=== PATIENT | female | born 1985 | race African-American/Black ===

== ENCOUNTER 2024-05-26 20:51 | Emergency (ER) | payer OTHER, SELFPAY ==
[2024-05-26 20:55] VITALS: BP 145/95
[2024-05-26 21:35] VITALS: BMI 43.7
--- NOTE | 2024-05-26 22:55 | ED.GENMED ---
History of Present Illness
General
Chief Complaint: Breast Problem
Source: patient
Exam Limitations: none
Time Seen by Provider: 05/26/24 22:46
Nursing documentation reviewed up to this point in time: agreed with
History of Present Illness
History of Present Illness:
This is a 39-year-old woman with history of hypertension complains of right breast pain, redness, warmth that began this afternoon, worsening throughout the day. She has had intermittent chills and myalgias this evening.
She does continue to breast-feed her 2-year-old.
No history of similar episodes in the past. She denies bloody nor purulent nipple discharge.
She has not taken anything for pain.
No history of diabetes nor history of immunocompromise.
Past History
Past History
ED Past Medical History: Arrthythmia (Palpitations) and HTN
ED Past Surgical History: Gynecological (Ovarian cyst removed)
Social History
Tobacco: Non-smoker
Alcohol: None
Drug: None
Personal:
Living: with family
Employment: Employed
Family History
Family History: Hypertension
Phy Exam
Physical Exam
Physical Exam:
GENERAL: 39-year-old woman appears her stated age, awake and alert, pleasant, appears in no acute distress. Low-grade fever noted.
EYE: anicteric
NECK: Supple, nontender, no meningismus, no significant adenopathy.
ENT: oral mucosa is moist. No rhinorrhea.
CARDIAC: Regular rate and rhythm. no murmur.
LUNGS: Clear breath sounds bilaterally, no acute respiratory distress, no wheezes/rales/rhonchi
BREAST: Right breast with mild serpiginous erythema throughout the breast but more pronounced lateral to the inferior aspect of the breast. Right breast is mildly warm to touch. Exquisite tenderness about the breast but no palpable masses. No
nipple discharge. No axillary tenderness nor axillary adenopathy. Left breast is without tenderness nor palpable masses.
ABDOMEN: Soft, nondistended, without focal tenderness
NEUROLOGICAL: Alert and oriented x3, no focal neuro deficits. Gait is yang and steady.
SKIN: Warm and dry, normal color, skin intact.
MUSCULOSKELETAL: No C/C/E. peripheral pulses are full and equal b/l. No palpable tenderness.
PSYCH: Normal and appropriate interaction.
Course
Orders/Labs/Results
Orders:
Orders
05/26/24 22:54
Ibuprofen [Motrin] 800 mg PO NOW STA
Sulfamethox./Trimethoprim Ds [Bactrim Ds 800 mg/160 mg] 1 tablet PO NOW STA
Vital Signs
Temp: 100.5 F
Initial and Last Documented VS:
Initial Vital Signs
Temp Pulse Resp BP Pulse Ox
99.8 F 109 20 145/95 97
05/26/24 20:55 05/26/24 20:55 05/26/24 20:55 05/26/24 20:55 05/26/24 20:55
Last Documented Vital Signs
Temp Pulse Resp BP Pulse Ox
99.8 F 109 20 145/95 97
05/26/24 20:55 05/26/24 20:55 05/26/24 20:55 05/26/24 20:55 05/26/24 20:55
MDM/Problems Addressed
Differential Diagnosis Includes:
39-year-old breast feeding woman presents with 1 day history of right breast pain, redness, warmth along with low-grade fever.
History and exam consistent with acute mastitis. There is no evidence of abscess formation.
No history of similar episodes in the past.
No history of immunocompromise.
Overall well in appearance. No indication for laboratory studies nor imaging at this point.
No prior history of MRSA however must consider community acquired MRSA thus will treat with a 1 week course of Bactrim DS.
Will give ibuprofen for pain and fever.
Recommend supportive measures, local heat and continue breast-feeding.
Prompt follow-up with PCP versus [facility].
Return precautions discussed.
Chronic conditions affecting care: HTN
*Pulse Oximetry
Patient hypoxic: no
*Critical Care Note
Total Time (30-74mins, 75-104mins- exclusive of procedures): Not Applicable
ED Attending Note
-
Portions of this chart may have been created with voice recognition software.� Occasional wrong word or��sound alike� substitutions may have occurred due to the inherent limitations of voice recognition software.
Discharge Plan
Departure
Patient Disposition: Home (Routine Discharge)
Date of Disposition: 05/26/24
Time of Disposition: 23:03
Patient with high blood pressure during this ER visit?: No
Condition: Good
Discharge Problem:
Acute mastitis of right breast
Instructions: Mastitis
Prescriptions:
New
sulfamethoxazole-trimethoprim [Bactrim DS] 800-160 mg tablet
1 tab PO BID 7 Days Qty: 14 1RF
ibuprofen 800 mg tablet
800 mg PO QIDPRN PRN (Reason: pain, fever) Qty: 30 0RF
No Action
enalapril maleate 10 mg Tablet
10 mg PO DAILY
nifedipine 30 mg Tablet Extended Release
30 mg PO R HS
Patient Comments:
pt takes at 6pm
cholecalciferol (vitamin D3) [Vitamin D3] 50 mcg (2,000 unit) Tablet
50 mcg PO DAILY
Referrals:
[facility] [Other]
Interventions
Interventions:
*Risk Screen - Suicide Last Done: 05/26/24 20:55
*General Assessment Last Done: 05/26/24 20:55
*Neglect/Abuse Screening Last Done: 05/26/24 20:55
Discharge Date and Time
Print Language: BENINESE
[2024-05-26] MEDS: MOTRIN 800 MG PO (23:05)
[2024-05-26] MEDS: BACTRIM DS 800 MG/160 MG 1 TABLET PO (23:05)
[2024-05-26 23:27] VITALS: BP 137/78
== END 2024-05-26 23:15 | disposition home or self-care (01) ==
LOC: EMR 20:51
PROVIDERS: EMERGENCY PHYSICIAN Emergency Medicine
DX: N61.0 Mastitis without abscess (principal); I10 Essential (primary) hypertension; Z82.49 Family history of ischemic heart disease and other diseases of the circulatory system
CPT/HCPCS: 99282